=== PATIENT | female | born 1990 | race Caucasian/White ===

== ENCOUNTER → 2017-01-09 | Outpatient (CLI) | payer SELFPAY ==
--- NOTE | 2017-01-09 17:28 | RADIOLOGY REPORT (SQ) ---
EXAM DESCRIPTION: U/S [id number] TRNABD 1GES W/ODOP COMPLETED DATE/TIME: 01/09/2017 4:45 pm REASON FOR STUDY: ENCOUNTER FOR SUPERVISION OF OTHER NORMAL Z34.81 ENCOUNTER FOR SUPRVSN OF NORMAL , FIRST TRIM COMPARISON: None. TECHNIQUE: Transabdominal static and realtime grayscale images acquired of the pelvis. Additional se lected spectral and color Doppler images recorded. All images stored on PACs. bHCG: Not available LIMITATIONS: None. FINDINGS: FETUS: Living intrauterine . EGA: 8 weeks 6 days SARKIS: 08/15/2017 FHR: 175 beats per minute. SUBCHORIONIC BLEED: Yes SIZE OF BLEED: 1.1 x 0.6 x 0.8 cm UTERUS: No masses. No anomalies. CERVICAL LENGTH: 6.0 cm Closed. RIGHT ADNEXA: Normal ovary with normal vascular flow. No adnexal free fluid. No adnexal masses. LEFT ADNEXA: Normal ovary with normal vascular flow. No adnexal free fluid. Hypoechoic areas identified measuring 2.9 x 2.5 x 2.4 cm in diameters most consistent with a corpus l utein cysts. FREE FLUID: None. OTHER: No other significant finding. IMPRESSION: LIVING INTRAUTERINE . EGA 8 weeks 6 days Trimester of : First - 0 to 13 weeks. TECHNICAL DOCUMENTATION: JOB ID: [id number] [employer]- All Rights Reserved
== END ==
LOC: RAD 15:57
PROVIDERS: ATTEND Nurse Practitioner Women's Health
DX: Z34.81 Encounter for supervision of other normal pregnancy, first trimester (principal)
CPT/HCPCS: 76801

== ENCOUNTER 2017-08-12 10:34 | Outpatient (CLI) | payer MEDICAID ==
[2017-08-12] MEDS ORDERED: RINGERS SOLUTION,LACTATED 1,000 ML IV PRN (11:11)
[2017-08-12] MEDS ORDERED: ONDANSETRON HCL INJ/PF 4 MG/2 ML SDV IV PRN (11:11)
[2017-08-12 11:27] LABS: APPEARANCE,URINE CLOUDY; BILIRUBIN,URINE NEGATIVE (NEGATIVE); COLOR,URINE AMBER; GLUCOSE, URINE NEGATIVE (NEGATIVE); KETONES,URINE NEGATIVE (NEGATIVE); LEUKOCYTE ESTERASE,URINE SMALL (NEGATIVE); NITRITE,URINE NEGATIVE (NEGATIVE); PROTEIN,URINE 30 mg/dL (NEGATIVE); URINE SPECIFIC GRAVITY 1.019; UROBILINOGEN,URINE NEGATIVE mg/dL (<2.0)
[2017-08-12] MEDS ORDERED: ONDANSETRON HCL INJ/PF 4 MG/2 ML SDV ONE (11:30)
[2017-08-12 11:43] LABS: URINE AMPHETAMINES SCREEN NEGATIVE; URINE BARBITURATES SCREEN NEGATIVE; URINE BENZODIAZEPINES SCREEN NEGATIVE; URINE COCAINE SCREEN NEGATIVE; URINE MARIJUANA (THC) SCREEN NEGATIVE; URINE METHADONE SCREEN NEGATIVE; URINE PHENCYCLIDINE SCREEN NEGATIVE
--- NOTE | 2017-08-12 14:19 | Non Stress Test Report ---
Non Stress Test Datetime Report Generated by CPN: 08/12/2017 14:19 DEMOGRAPHIC EGA NST: 39.6 INDICATION Indication for Study: Other Indication for Study (NST) Other: Labor check VITAL SIGNS Temperature - NST: 97.9 Pulse - NST: 114 RESP - NST: 14 NBPSYS NST: 123 NBPDIA NST: 75 MONITORING Monitor Explained: Monitor Explained; Test Explained; Patient Verbalized Understanding Time on Monitor: 08/12/2017 12:24 Time off Monitor: 08/12/2017 12:45 NST Duration: 21 NST INTERVENTIONS NST Interventions: PO Hydration; IV Fluids Physician Notified NST: H Antoine CNM BABY A: [id number] BABY A Movement : Present Contraction Frequency : 2-3 FHR Baseline : 145 Accelerations : 15X15 Decelerations : None Variability : Moderate 6-25bpm NST Review: Meets Criteria for Reactive NST NST Review and Verified By : Vaishali Terrell [facility] NST Results: Reactive NST REPORT Report Trigger: Send Report
== END 2017-08-12 14:14 | disposition home or self-care (01) ==
LOC: LC 10:34
PROVIDERS: ATTEND Obstetrics & Gynecology
PROC: 4A1HXCZ Monitoring of Products of Conception, Cardiac Rate, External Approach (ICD-10-PCS; principal; 2017-08-12)
DX: O21.2 Late vomiting of pregnancy (principal); Z3A.39 39 weeks gestation of pregnancy
CPT/HCPCS: 59025; 81005; 80307; J2405

== ENCOUNTER 2017-08-14 16:18 | Outpatient (CLI) | payer MEDICAID ==
--- NOTE | 2017-08-14 16:54 | Non Stress Test Report ---
Non Stress Test Datetime Report Generated by CPN: 08/14/2017 16:54 DEMOGRAPHIC Test Number: 1 EGA NST: 40.1 INDICATION Indication for Study: Ordered by Provider Indication for Study (NST) Other: NST MONITORING Monitor Explained: Monitor Explained; Test Explained; Patient Verbalized Understanding Time on Monitor: 08/14/2017 16:30 Time off Monitor: 08/14/2017 16:52 NST Duration: 22 NST INTERVENTIONS NST Interventions: PO Hydration Physician Notified NST: J. Maguire, CNM BABY A: [id number] BABY A Contraction Frequency : irregular FHR Baseline : 135 Accelerations : 15X15 Decelerations : None Variability : Moderate 6-25bpm NST Review: Meets Criteria for Reactive NST NST Review and Verified By : Theo Rucker RNC NST Results: Reactive NST REPORT Report Trigger: Send Report
== END 2017-08-14 17:18 | disposition home or self-care (01) ==
LOC: LC 16:18
PROVIDERS: ATTEND Obstetrics & Gynecology Gynecology
PROC: 4A1HXCZ Monitoring of Products of Conception, Cardiac Rate, External Approach (ICD-10-PCS; principal; 2017-08-14)
DX: O48.0 Post-term pregnancy (principal); Z3A.40 40 weeks gestation of pregnancy
CPT/HCPCS: 59025

== ENCOUNTER 2017-08-15 00:01 | Outpatient (CLI) | payer MEDICAID ==
[2017-08-15 00:41] LABS: APPEARANCE,URINE SLIGHTLY-CLOUDY; BILIRUBIN,URINE NEGATIVE (NEGATIVE); GLUCOSE, URINE NEGATIVE (NEGATIVE); KETONES,URINE NEGATIVE (NEGATIVE); LEUKOCYTE ESTERASE,URINE NEGATIVE (NEGATIVE); NITRITE,URINE NEGATIVE (NEGATIVE); PROTEIN,URINE NEGATIVE (NEGATIVE); URINE SPECIFIC GRAVITY 1.016
[2017-08-15 00:47] LABS: COLOR,URINE YELLOW
[2017-08-15 01:51] LABS: URINE AMPHETAMINES SCREEN NEGATIVE; URINE BARBITURATES SCREEN NEGATIVE; URINE BENZODIAZEPINES SCREEN NEGATIVE; URINE COCAINE SCREEN NEGATIVE; URINE MARIJUANA (THC) SCREEN NEGATIVE; URINE METHADONE SCREEN NEGATIVE; URINE PHENCYCLIDINE SCREEN NEGATIVE
--- NOTE | 2017-08-15 02:40 | Non Stress Test Report ---
Non Stress Test Datetime Report Generated by CPN: 08/15/2017 02:40 DEMOGRAPHIC Test Number: 3 EGA NST: 40.2 INDICATION Indication for Study: Ordered by Provider MONITORING Monitor Explained: Monitor Explained; Test Explained; Patient Verbalized Understanding Time on Monitor: 08/15/2017 00:18 Time off Monitor: 08/15/2017 00:57 NST Duration: 39 NST INTERVENTIONS NST Interventions: PO Hydration; Reposition Patient Physician Notified NST: Dr. Quick BABY A: [id number] BABY A Movement : Present Contraction Frequency : 2-8 FHR Baseline : 120 Accelerations : 15X15 Decelerations : None Variability : Moderate 6-25bpm NST Review: Meets Criteria for Reactive NST NST Review and Verified By : Matt Sotelo RN NST Results: Reactive NST REPORT Report Trigger: Send Report
== END 2017-08-15 03:14 | disposition home or self-care (01) ==
LOC: LC 00:01
PROVIDERS: ATTEND Obstetrics & Gynecology Gynecology
PROC: 4A1HXCZ Monitoring of Products of Conception, Cardiac Rate, External Approach (ICD-10-PCS; principal; 2017-08-15)
DX: O48.0 Post-term pregnancy (principal); Z3A.40 40 weeks gestation of pregnancy
CPT/HCPCS: 59025; 80307; 81005

== ENCOUNTER 2017-08-17 05:59 | Inpatient (IN) | payer MEDICAID ==
[2017-08-17 06:39] LABS: APPEARANCE,URINE CLEAR; BILIRUBIN,URINE NEGATIVE (NEGATIVE); COLOR,URINE YELLOW; GLUCOSE, URINE NEGATIVE (NEGATIVE); KETONES,URINE NEGATIVE (NEGATIVE); PROTEIN,URINE NEGATIVE (NEGATIVE)
[2017-08-17 06:40] LABS: LEUKOCYTE ESTERASE,URINE NEGATIVE (NEGATIVE); NITRITE,URINE NEGATIVE (NEGATIVE)
[2017-08-17 06:41] LABS: URINE SPECIFIC GRAVITY 1.011
[2017-08-17] MEDS ORDERED: RINGERS SOLUTION,LACTATED 1,000 ML IV ONE (06:44)
[2017-08-17] MEDS ORDERED: RINGERS SOLUTION,LACTATED 1,000 ML IV PRN (06:44)
[2017-08-17 06:46] LABS: URINE AMPHETAMINES SCREEN NEGATIVE; URINE BARBITURATES SCREEN NEGATIVE; URINE BENZODIAZEPINES SCREEN NEGATIVE; URINE COCAINE SCREEN NEGATIVE; URINE MARIJUANA (THC) SCREEN NEGATIVE; URINE METHADONE SCREEN NEGATIVE; URINE PHENCYCLIDINE SCREEN NEGATIVE
[2017-08-17 06:56] LABS: ABSOLUTE BASOPHILS # (AUTO) 0.1 10^3/uL (0.0-0.2); ABSOLUTE LYMPHOCYTES (AUTO) 1.9 10^3/uL (0.5-4.7); ABSOLUTE MONOCYTES (AUTO) 0.5 10^3/uL (0.1-1.4); BASOPHILS % (AUTO) 0.7 % (0-2); EOSINOPHILS % (AUTO) 0.5 % (0-6); HEMATOCRIT 33.5 % (36.0-47.0); HEMOGLOBIN 11.1 g/dL (12.0-15.5); LYMPHOCYTES % (AUTO) 25.7 % (13-45); MEAN CORPUSCULAR HEMOGLOBIN 27.7 pg (27.0-33.4); MEAN CORPUSCULAR HGB CONC 33.1 g/dL (32.0-36.0); MEAN CORPUSCULAR VOLUME 84 fl (80-97); PLATELET COUNT 228 10^3/uL (150-450); RED BLOOD COUNT 3.99 10^6/uL (3.72-5.28); RED CELL DISTRIBUTION WIDTH 19.8 % (11.5-14.0); SEGMENTED NEUTROPHILS % (AUTO) 66.1 % (42-78); TOTAL CELLS COUNTED % (AUTO) 100 %; WHITE BLOOD COUNT 7.5 10^3/uL (4.0-10.5)
--- NOTE | 2017-08-17 07:12 | Admission Physical ---
Datetime Report Generated by CPN: 08/17/2017 07:12 CURRENT ADMISSION Chief Complaint: Suspected Ruptured Membranes Indication for Induction: PROM Admit Impression : Term, Intrauterine ; No Active Labor; Ruptured Membranes Admit Plan: Admit to Unit; Initiate Labor Augmentation Protocol ALLERGIES Medication Allergies: No Medication Allergies: No Known Allergies (08/15/2017) Latex: No Latex Allergies Food Allergies: none Environmental Allergies: none OBSTETRICAL HISTORY EDC: 08/13/2017 00:00 : 2 Para: 1 Term: 1 : 0 SAB: 0 IAB: 0 Ectopic: 0 Livin Cesareans: 0 VBACs: 0 Multiple Births: 0 Gestational Diabetes: No Rh Sensitization: No Incompetent Cervix: No DANIEL: No Infertility: No ART Treatment: No Uterine Anomaly: No IUGR: No Hx Previous C/S: No Macrosomia: No Hx Loss/Stillborn: No PIH: No Hx : No Placenta Previa/Abruption: No Depression/PP Depression: No PTL/PROM: No Post Hemorrhage: No Current Procedures: Ultrasound; NST Obstetrical History Comments: G1 02/2014 male @ 40 wks gestation 9lbs 3 oz G2 current SEE RECORDS Alcohol: No Marijuana : No Cocaine: No Other Illicit Drugs: No Cigarettes: Former Smoker. [id number] Cigarette Comments: stopped smoking prior to MEDICAL HISTORY Diabetes: No Blood Transfusion: No Pulmonary Disease (Asthma, TB): No Breast Disease: No Hypertension: No Aquatics Lifeguard Surgery: No Heart Disease: No Hosp/Surgery: No Autoimmune Disorder: No Anesthetic Complications: No Kidney Disease: No Abnormal Pap Smear: No Neuro/Epilepsy: No Psychiatric Disorders: No Other Medical Diseases: No Hepatitis/Liver Disease: No Significant Family History: No Varicosities/Phlebitis: No Trauma/Violence : No Thyroid Dysfunction: No INFECTIOUS HISTORY Gonorrhea: No Genital Herpes: No Chlamydia: No Tuberculosis: No Syphilis: No Hepatitis: No HIV/AIDS Exposure: No Rash or Viral Illness: No HPV: No PHYSICAL EXAM General: Normal HEENT: Normal Neurologic: Normal Thyroid: Normal Heart: Normal Lungs: Normal Breast: Normal Back: Normal Abdomen: Normal Genitourinary Exam: Normal Extremities: Normal DTRs: Normal Pelvic Type: Adequate Vital Signs: Reviewed VAGINAL EXAM Dilatation: 3 Effacement: 0 Station: -3 MEMBRANES Pooling: Positive Membranes: Ruptured Amniotic Fluid Color: Clear FETUS A EGA: 40.4 Monitoring: External US FHR- Baseline: 150 Variability: Moderate 6-25bpm Accelerations: 15X15 Decelerations: None FHR Category: Category I Estimated Weight (gm): 3500 Presentation: Vertex PLANS FOR LABOR AND DELIVERY Labor and Delivery: None Pain Management: Epidural Feeding Preference: Breast Benefit of Breast Feed Discussed: Yes Circumcision: No INFORMED CONSENT Signature: with User ID: Viv
[2017-08-17] MEDS ORDERED: LIDOCAINE 1% INJ-PF (10 MG/ML) 30 ML SDV ONE (07:21)
[2017-08-17] MEDS ORDERED: MISOPROSTOL 0.2 MG TABLET ONE (07:21)
[2017-08-17] MEDS ORDERED: OXYTOCIN/NORMAL SALINE 20 UNIT/1,000 ML RTUINJ ONE (07:21)
[2017-08-17] MEDS ORDERED: OXYTOCIN/NORMAL SALINE 20 UNIT/1,000 ML RTUINJ IV PRN ×2 (07:30→12:47)
[2017-08-17] MEDS ORDERED: NALBUPHINE HCL INJ 10 MG/1 ML AMPULE ONE (08:58)
[2017-08-17] MEDS ORDERED: EPHEDRINE SULFATE INJ 50 MG/1 ML AMPULE ONE (11:17)
[2017-08-17] MEDS ORDERED: BUPIVACAINE HCL 0.25 % INJ/PF (2.5 MG/1 ML) 30 ML VIAL ONE (11:18)
[2017-08-17] MEDS ORDERED: FENTANYL CITRATE INJ/PF 100 MCG/2 ML AMPUL ONE (11:18)
[2017-08-17] MEDS ORDERED: FENTANYL/BUPIVACAINE/NS/PF 200 MCG/100 ML RTUINJ EPI ONE (11:18)
[2017-08-17] MEDS ORDERED: GLYCERIN/WITCH HAZEL LEAF 1 EACH MED..PAD TP PRN (12:47)
[2017-08-17] MEDS ORDERED: BENZOCAINE/MENTHOL AEROSOL SPRAY 56 ML TOP PRN (12:47)
[2017-08-17] MEDS ORDERED: ACETAMINOPHEN 325 MG TABLET PO PRN (12:47)
[2017-08-17] MEDS ORDERED: DIPH/PERTUSS(ACELL)/TETANUS VAC/PF 0.5 ML SYR (>=10YO) IM PRN (12:47)
[2017-08-17] MEDS ORDERED: ZOLPIDEM TARTRATE 5 MG TABLET PO PRN (12:47)
[2017-08-17] MEDS ORDERED: ACETAMINOPHEN WITH CODEINE #3 TABLET PO PRN ×2 (12:47)
[2017-08-17] MEDS ORDERED: DIBUCAINE 1% OINTMENT 28 GM TP PRN (12:47)
[2017-08-17] MEDS ORDERED: DIPHENHYDRAMINE HCL 25 MG CAPSULE PO PRN (12:47)
[2017-08-17] MEDS ORDERED: PROMETHAZINE HCL INJ 25 MG/1 ML VIAL IV PRN (12:47)
[2017-08-17] MEDS ORDERED: NA PHOS,M-B/NA PHOS,DI-BA (ADULT) 133 ML ENEMA PR PRN (12:47)
[2017-08-17] MEDS ORDERED: PSEUDOEPHEDRINE HCL 30 MG TABLET PO PRN (12:47)
[2017-08-17] MEDS ORDERED: MAGNESIUM HYDROXIDE SUSP 30 ML UDCUP PO PRN (12:47)
[2017-08-17] MEDS ORDERED: PROMETHAZINE HCL 25 MG SUPP.RECT PR PRN (12:47)
[2017-08-17] MEDS ORDERED: MEASLES,MUMPS&RUBELLA VACC/PF 0.5 ML VIAL SUBCUT PRN (12:47)
[2017-08-17] MEDS ORDERED: PROMETHAZINE HCL 25 MG TABLET PO PRN (12:47)
--- NOTE | 2017-08-17 13:41 | Delivery Summary ---
Del Sum A-C Datetime Report Generated by CPN: 08/17/2017 13:41 DELIVERY PERSONNEL DELIVERY PERSONNEL: [id number] Delivery Doctor:: Radha Schultz CNM Nurse Armored Car Messenger Certified:: Radha Schultz CNM Labor and Delivery Nurse:: Shayna Vargas RNcommunication studies professor Nurse:: FLY Luis Customer Account Coordinator/BEDSPREAD CUTTER: Kaye Abisai, LEAD INGOT MOLDER MATERNAL INFORMATION Delivery Anesthesia: Epidural Medications After Delivery: Pitocin Bolus-Please Comment Meds After Delivery Comment: Pitocin 20 units in 1000 ml nss open for bolus Maternal Complications: None Provider Comments: of viable female infant, head, shoulders, and body delivered without difficulty, infant with spontaenous cry and respirations, to maternal abdomen, skin to skin, cord clamped X 2 after 2 min delay, cut free by pts support person, spontaneous delivery of intact placetnta, accessory lobe noted, delivered via akhtar mechanism, appears intact, 3 VC, vagian and perineum inspected, laceration repaired, as aboved, hemostasis acheived with external fundal massage and iv pitocin, routine pp care. LABOR SUMMARY EDC: 08/13/2017 00:00 No. Babies in Womb: 1 Attempted: No Labor Anesthesia: Epidural LABOR INFORMATION Reason for Induction: Not Applicable Onset of Labor: 08/17/2017 07:30 Complete Dilatation: 08/17/2017 11:54 Cervical Ripening Agents: Soto Balloon Oxytocin: Augmentation Group B Beta Strep: Negative Antibiotics # of Doses: 0 Steroids Given: None Reason Steroids Not Administered: Not Applicable MEMBRANES Membranes Rupture Method: Spontaneous Rupture of Membranes: 08/17/2017 05:00 Length of Rupture (hr): 7.38 Amniotic Fluid Color: Clear Amniotic Fluid Amount: Moderate Amniotic Fluid Odor: Normal STAGES OF LABOR Stage 1 hr: 4 Stage 1 min: 24 Stage 2 hr: 0 Stage 2 min: 29 Stage 3 hr: 0 Stage 3 min: 6 Total Time in Labor hr: 4 Total Time in Labor min: 59 VAGINAL DELIVERY Episiotomy: None Laceration #1: Perineal Laceration Extension #1: Second Degree Other Laceration: Chromic 801 Laceration Repair: Yes Laceration Repair Note: repaired with 2-0 chromic using epidural for anesthesia Sponge Count Correct: N/A Sharps Count Correct: Yes CSECTION DELIVERY Primary Indication: N/A Secondary Indication: N/A CSection Incidence: N/A Labor: N/A Elective: N/A CSection Incision: N/A BABY A INFORMATION Delivery Date/Time: 08/17/2017 12:23 Method of Delivery: Vaginal Born in Route : No : N/A Forceps: N/A Vacuum Extraction: N/A Shoulder Dystocia : No PRESENTATION/POSITION BABY A Presentation: Cephalic Cephalic Presentation: Vertex Vertex Position: Right Occipital Anterior Breech Presentation: N/A PLACENTA INFORMATION BABY A Placenta Delivery Time : 08/17/2017 12:29 Placenta Method of Delivery: Spontaneous Placenta Status: Delivered SCORES BABY A Heart Rate 1 min: >100 bpm Resp Effort 1 min: Good Cry Reflex Irritability 1 min: Cough or Sneeze or Pulls Away Muscle Tone 1 min: Active Motion Color 1 min: Blue/Pale Resuscitation Effort 1 min: Tactile Stimulation SCORE 1 MIN: 8 Heart Rate 5 min: >100 bpm Resp Effort 5 min: Good Cry Reflex Irritability 5 min: Cough or Sneeze or Pulls Away Muscle Tone 5 min: Active Motion Color 5 min: Body [place], Extremities Blue Resuscitation Effort 5 min: Tactile Stimulation SCORE 5 MIN: 9 INFORMATION BABY A Gestational Age at Delivery: 40.4 Gestational Status: Full Term- 39- 40.6 Weeks Outcome : Liveborn Condition : Stable Sex: Female IDENTIFICATION BABY A Verification Date/Time: 08/10/2017 12:37 ID Band Number: [id number] Mother's Name Verified: Yes Infant RN Verifying Infant: D Anuj us/D [place] RNC WEIGHT/LENGTH BABY A Infant Birthweight (gm): 3860 Weight (lb): 8 Infant Weight (oz): 8 Length (in): 20.50 Infant Length (cm): 52.07 CORD INFORMATION BABY A No. Cord Vessels: 3 Nuchal Cord : N/A Nuchal Cord- Other: foot cord Cord Blood Taken: Yes-For Eval (Mom's Blood Type - or O+) Suction: Mouth; Nose ASSESSMENT BABY A Complications: None Physical Findings at Delivery: Within Normal Limits Respirations: Appears Normal Skin to Skin: Yes Percher/ALS Called : No Care By: Julieta Camp RNC Transferred To: Remains with Mother BABY B INFORMATION : N/A SIGNATURES Assignment: Patt Fan MD Signature: with User ID: Samuel : with User ID: Samuel
[2017-08-17] MEDS: IBUPROFEN 800 MG TABLET PO SCH ×2 (15:52→22:27)
[2017-08-17] MEDS: FERROUS SULFATE 325 MG TABLET PO SCH (17:10)
[2017-08-17] MEDS: DOCUSATE SODIUM 100 MG CAPSULE PO SCH (17:10)
[2017-08-17] MEDS: FAMOTIDINE 20 MG TABLET PO SCH (22:28)
[2017-08-18] MEDS: IBUPROFEN 800 MG TABLET PO SCH ×3 (05:52→21:05)
[2017-08-18 07:17] LABS: HEMATOCRIT 32.4 % (36.0-47.0); HEMOGLOBIN 10.8 g/dL (12.0-15.5); MEAN CORPUSCULAR HGB CONC 33.4 g/dL (32.0-36.0); MEAN CORPUSCULAR VOLUME 84 fl (80-97); PLATELET COUNT 214 10^3/uL (150-450); RED BLOOD COUNT 3.88 10^6/uL (3.72-5.28); RED CELL DISTRIBUTION WIDTH 19.5 % (11.5-14.0); WHITE BLOOD COUNT 11.1 10^3/uL (4.0-10.5)
--- NOTE | 2017-08-18 09:11 | PDOC PROGRESS REPORT ---
Subjective-OB Progress Note for:: 08/18/17 Subjective: Doing well, no c/o, bottle feeding, voiding, ambulating Physical Exam (OB) Vital Signs: Temp Pulse Resp BP Pulse Ox 97.6 F 85 16 110/75 97 08/18/17 07:58 08/18/17 07:58 08/18/17 07:58 08/18/17 07:58 08/18/17 07:58 Intake & Output 08/17/17 08/18/17 08/19/17 06:59 06:59 06:59 Intake Total 850 Balance 850 Weight 91 kg - PIH/Pre-Eclampsia DTR's: 2 + Clonus: Negative Headache: Absent Epigastric Pain: No Visual Changes: No - Lochia Lochia Amount: Scant < 10 ml Lochia Color: Rubra/Red - Abdomen Description: Soft Hernia Present: No Fundal Description: Firm Fundal Height: u/u - u/2 Objective-Diagnostic Laboratory: 08/18/17 07:04 08/18/17 07:04 WBC 11.1 H RBC 3.88 Hgb 10.8 L Hct 32.4 L MCV 84 MCH 28.0 MCHC 33.4 RDW 19.5 H Plt Count 214 Assessment and Plan(PN) - Assessment and Plan (1) Vaginal delivery Is this a current diagnosis for this admission?: Yes (2) Post term over 40 weeks Is this a current diagnosis for this admission?: Yes (3) Premature rupture of membranes Qualifiers: PROM gestational age: -third trimester Is this a current diagnosis for this admission?: Yes - Time Spent with Patient Time with patient: Less than 15 minutes Medications reviewed and adjusted accordingly: Yes - Disposition Anticipated Discharge: Home Within: within 24 hours
[2017-08-18] MEDS: DOCUSATE SODIUM 100 MG CAPSULE PO SCH ×2 (10:22→18:22)
[2017-08-18] MEDS: FERROUS SULFATE 325 MG TABLET PO SCH ×2 (10:22→18:22)
[2017-08-18] MEDS: PRENATAL VITAMIN W DHA CAPSULE PO SCH (10:22)
[2017-08-18] MEDS: SENNOSIDES/DOCUSATE 8.6-50 MG 1 EACH TABLET PO SCH (10:23)
[2017-08-18] MEDS: FAMOTIDINE 20 MG TABLET PO SCH ×2 (10:23→21:05)
[2017-08-19] MEDS: IBUPROFEN 800 MG TABLET PO SCH (05:32)
[2017-08-19 08:12] VITALS: BP 114/67
[2017-08-19] MEDS: PRENATAL VITAMIN W DHA CAPSULE PO SCH (10:44)
[2017-08-19] MEDS: FERROUS SULFATE 325 MG TABLET PO SCH (10:45)
[2017-08-19] MEDS: SENNOSIDES/DOCUSATE 8.6-50 MG 1 EACH TABLET PO SCH (10:45)
[2017-08-19] MEDS: FAMOTIDINE 20 MG TABLET PO SCH (10:45)
[2017-08-19] MEDS: DOCUSATE SODIUM 100 MG CAPSULE PO SCH (10:45)
--- NOTE | 2017-08-19 11:09 | PDOC DISCHARGE SUMMARY ---
Final Diagnosis Discharge Date: 08/19/17 - Final Diagnosis (1) Post term over 40 weeks Is this a current diagnosis for this admission?: Yes (2) Vaginal delivery Is this a current diagnosis for this admission?: Yes Discharge Data - Discharge Medication Home Medications: Iron 1 tab PO DAILY 08/12/17 Comb No.42/Folic Acid [Prena1 Chew Tablet] 1.4 mg PO DAILY 08/12/17 Reason(s) for Admission: Induction of Labor Intrapartum Procedure(s): Spontaneous Vaginal Delivery Complication(s): Laceration-Perineal Laceration-Degree: 2nd - Diagnosis Test Laboratory: Temp Pulse Resp BP Pulse Ox 98.1 F 74 16 114/67 97 08/19/17 08:04 08/19/17 08:04 08/19/17 08:04 08/19/17 08:04 08/19/17 08:04 08/17/17 08/17/17 08/18/17 06:08 06:44 07:04 RBC 3.99 3.88 Hgb 11.1 L 10.8 L Hct 33.5 L 32.4 L Urine Opiates Screen NEGATIVE - Discharge information/Instructions Discharge Activity: Activity As Tolerated Discharge Diet: Regular Disposition: HOME, SELF-CARE Follow up with: [facility] in: 4
== END 2017-08-19 12:46 | disposition home or self-care (01) | DRG 775 ==
LOC: LC 05:59 → LR 06:26 → 2S 15:20
PROVIDERS: ADMIT Obstetrics & Gynecology; ATTEND Obstetrics & Gynecology
PROC: 10E0XZZ Delivery of Products of Conception, External Approach (ICD-10-PCS; principal; 2017-08-17)
PROC: 0KQM0ZZ Repair Perineum Muscle, Open Approach (ICD-10-PCS; 2017-08-17)
PROC: 4A1HXCZ Monitoring of Products of Conception, Cardiac Rate, External Approach (ICD-10-PCS; 2017-08-17)
DX: O48.0 Post-term pregnancy (principal); O70.1 Second degree perineal laceration during delivery; O69.2XX0 Labor and delivery complicated by other cord entanglement, with compression, not applicable or unspecified; Z3A.40 40 weeks gestation of pregnancy; Z37.0 Single live birth; Z87.891 Personal history of nicotine dependence
CPT/HCPCS: 36415; 80307; 81005; 85025; 85027; 86592; 86850; 86900; 86901; 94760; C1726; J2300; J2590; J3010; J3490